=== PATIENT | female | born 1950 | race Caucasian/White ===

== ENCOUNTER 2021-02-08 06:29 | Inpatient (IN) ==
[2021-02-04 12:36] LABS: Basophils # 0.1 10*3/uL (0.0-0.2); Basophils % 0.8 % (0.0-0.8); Eosinophils # 0.2 10*3/uL (0.0-0.87); Eosinophils % 2.6 % (0.00-10.9); Hematocrit 41.1 VOL% (35.7-47.0); Hemoglobin 14.4 GM/DL (12.0-16.0); Immature Granulocytes % 0.3 %; Immature Granulocytes Absolute 0.02 #; Lymphocytes # 2.3 10*3/uL (1.4-4.0); Lymphocytes % 34.8 % (21.3-54.2); Mean Corpuscular Volume 90.9 FL (87-102); Mean Platelet Volume 9.9 FL (9.6-12.0); Monocytes % 9.3 % (1.7-12.7); Neutrophils % 52.2 % (38.7-73.9); Platelet Count 242 T/CUMM (130-400); Red Blood Count 4.52 MC/CUMM (3.8-5.5); Red Cell Distribution Width 12.7 % (9.3-17.3); White Blood Count 6.5 T/CUMM (4-12)
[2021-02-04 12:59] LABS: Albumin 4.1 G/DL (3.4-5.0); Bilirubin,Total 0.5 MG/DL (0.2-1.0); Calcium 10.6 MG/DL (8.5-10.1); Osmolality,Calculated 281.7 MOS/KG (273-304); Potassium 4.2 MMOL/L (3.5-5.1)
[~2021-02-08 06:29] MED LIST: ACETAMINOPHEN 500 MG TABLET PO ONE; DIAZEPAM 5 MG TABLET PO ONE; FAMOTIDINE 20 MG TABLET PO ONE
[2021-02-08] MEDS ORDERED: ALBUMIN 5% 12.5 GM/250 ML VIAL IV ONE (06:30)
[2021-02-08] MEDS ORDERED: VANCOMYCIN INJ 500 MG in SODIUM CHLORIDE 0.9% 100 ML IV ONE (06:30)
[2021-02-08] MEDS ORDERED: HEPARIN/NACL 0.9% 2 UNITS/ML 1,000 UNIT/500 ML BAG IV ONE (06:53)
[2021-02-08] MEDS ORDERED: HEPARIN 10,000 UNIT/10 ML VIAL ONE (07:12)
[2021-02-08] MEDS ORDERED: ETOMIDATE 40 MG/20 ML VIAL IV ONE (07:12)
[2021-02-08] MEDS ORDERED: fentaNYL 100 MCG/2 ML VIAL ONE (07:12)
[2021-02-08] MEDS ORDERED: LIDOCAINE 2% 5 ML VIAL ONE (07:12)
[2021-02-08] MEDS ORDERED: SEVOFLURANE 1 UNIT/15 MINUTE INH ONE ×6 (07:12→09:49)
[2021-02-08] MEDS ORDERED: ONDANSETRON 4 MG/2 ML VIAL ONE (07:12)
[2021-02-08] MEDS ORDERED: ROCURONIUM 50 MG/5 ML VIAL IV ONE (07:12)
[2021-02-08] MEDS ORDERED: propofoL 200 MG/20 ML VIAL IV ONE (07:12)
[2021-02-08] MEDS ORDERED: ePHEDrine 50 MG/ML VIAL ONE (07:18)
[2021-02-08] MEDS ORDERED: LACTATED RINGERS 1,000 ML IV SCH (07:30)
[2021-02-08] MEDS ORDERED: HEPARIN 5,000 UNIT/1 ML VIAL ONE (07:45)
[2021-02-08] MEDS ORDERED: LIDOCAINE 1% 20 ML VIAL ONE (07:46)
[2021-02-08] MEDS ORDERED: DEXAMETHASONE 4 MG/1 ML VIAL ONE (07:54)
[2021-02-08] MEDS ORDERED: ROPIVACAINE 0.5% 30 ML VIAL ONE (07:54)
[2021-02-08] MEDS ORDERED: NITROGLYCERIN DRIP 50 MG/250 ML BOTTLE IV ONE (08:00)
[2021-02-08] MEDS ORDERED: PHENYLEPHRINE 10 MG/1 ML VIAL IV ONE (08:00)
[2021-02-08] MEDS ORDERED: SODIUM CHLORIDE 0.9% 1,000 ML IV ONE ×2 (09:22→09:34)
[2021-02-08] MEDS ORDERED: MINERAL OIL/PETROLATUM OPH OINT 3.5 GM TUBE ONE ×2 (09:22→09:49)
[2021-02-08] MEDS ORDERED: PHENYLEPHRINE 1 MG/10 ML SYRINGE IV ONE (09:22)
[2021-02-08] MEDS ORDERED: SODIUM CHLORIDE 0.9% 250 ML IV ONE ×2 (09:22)
[2021-02-08] MEDS ORDERED: PROTAMINE SULFATE 50 MG/5 ML VIAL IV ONE (09:41)
[2021-02-08] MEDS ORDERED: SUGAMMADEX 200 MG/2 ML VIAL IV ONE (09:43)
[2021-02-08] MEDS ORDERED: DEXTROSE 50% 25 GM/50 ML VIAL IV PRN ×2 (10:03→19:01)
[2021-02-08] MEDS ORDERED: oxyCODONE/ACETAMINOPHEN 5-325 MG TABLET PO PRN ×2 (10:03)
[2021-02-08] MEDS ORDERED: ONDANSETRON 4 MG/2 ML VIAL IV PRN ×2 (10:03→10:41)
[2021-02-08] MEDS ORDERED: HYDROmorphone 2 MG/1 ML VIAL IV PRN ×2 (10:03)
[2021-02-08] MEDS ORDERED: GLUCAGON 1 MG VIAL IM PRN ×2 (10:03→19:01)
[2021-02-08] MEDS ORDERED: PROMETHAZINE 25 MG/1 ML VIAL IM PRN (10:03)
[2021-02-08] MEDS ORDERED: NALOXONE 0.4 MG/ML VIAL IV PRN (10:03)
[2021-02-08] MEDS ORDERED: ALBUTEROL/IPRATROPIUM 3 ML NEB RESP TX ONE (10:05)
[2021-02-08] MEDS ORDERED: PHENYLEPHRINE DRIP 40 MG/250 ML PREMIX IV SCH (10:30)
[2021-02-08] MEDS ORDERED: NITROPRUSSIDE 100 MG in DEXTROSE 5% 250 ML IV SCH (10:30)
[2021-02-08] MEDS: HYDROmorphone 2 MG/1 ML VIAL IV PRN ×2 (10:46→10:51)
[2021-02-08 11:27] VITALS: BP 114/64
[2021-02-08] MEDS: LACTATED RINGERS 1,000 ML IV SCH ×2 (11:43→21:02)
[2021-02-08] MEDS: INSULIN REGULAR 100 UNIT/ML SUBCUT SCH ×2 (17:45→21:02)
[2021-02-08] MEDS ORDERED: FEXOFENADINE PSEUDOEPHEDRINE PO SCH ×2 (19:00→21:00)
[2021-02-08] MEDS ORDERED: FEXOFENADINE 180 MG PO SCH (21:00)
[2021-02-08] MEDS ORDERED: MONTELUKAST 10 MG TABLET PO SCH (21:00)
[2021-02-08] MEDS ORDERED: NON-FORMULARY MEDICATION (Aspirin 81 mg Tablet) PO SCH (21:00)
[2021-02-08] MEDS: METOPROLOL SUCCINATE XL 25 MG TABLET PO SCH (21:01)
[2021-02-09] MEDS: LACTATED RINGERS 1,000 ML IV SCH (06:38)
[2021-02-09] MEDS: INSULIN REGULAR 100 UNIT/ML SUBCUT SCH ×2 (07:41→12:43)
[2021-02-09] MEDS: METOPROLOL SUCCINATE XL 25 MG TABLET PO SCH (08:59)
[2021-02-09] MEDS ORDERED: ROSUVASTATIN 10 MG TABLET PO SCH (09:00)
[2021-02-09] MEDS ORDERED: LEVOTHYROXINE 100 MCG TABLET PO SCH (09:00)
[2021-02-09] MEDS ORDERED: TRIAMTERENE/HCTZ 37.5-25 MG TABLET PO SCH (09:00)
[2021-02-09] MEDS ORDERED: POLYCARBOPHIL 625 MG TABLET PO SCH (09:00)
[2021-02-09] MEDS ORDERED: ASPIRIN EC 81 MG TABLET PO SCH (09:00)
[2021-02-09] MEDS ORDERED: CLOPIDOGREL 75 MG TABLET PO SCH (09:00)
[2021-02-09] MEDS ORDERED: metFORMIN 500 MG TABLET PO SCH (21:00)
== END 2021-02-09 13:47 | disposition home or self-care (01) | DRG 39 ==
LOC: N.OR 06:29 → N.SDSINP 06:30 → EDSTATUS 08:45 → N.SDSINP 10:03 → N.ICU 11:14
PROVIDERS: ADMIT Surgery; ATTEND Surgery